=== PATIENT | male | born 2000 | race Caucasian/White ===

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

== ENCOUNTER 2022-11-17 17:43 | Emergency (ER) | payer BC, OTHER ==
[~2022-11-17] VITALS: Ht 172.7 cm; Wt 103.9 kg
[2022-11-17 17:54] VITALS: BP 146/63; PULSE 131; RESP 22; TEMP 102.8; O2SAT 99
[2022-11-17] MEDS ORDERED: KETOROLAC 30 MG/ML VIAL IVP ONE (19:00)
[2022-11-17] MEDS ORDERED: ACETAMINOPHEN EXTRA STRENGTH 500 MG TAB PO ONE (19:00)
[2022-11-17] MEDS ORDERED: NACL 0.9% 1,000 ML IV ONE (19:00)
[2022-11-17 19:07] LABS: BASOPHILS % (AUTO) 0.6 % (0.0-2.0); EOSINOPHILS % (AUTO) 0.1 % (0.0-4.0); HEMOGLOBIN 13.6 g/dL (12.0-18.0); LYMPHOCYTES # (AUTO) 0.7 K/uL (2.0-11.5); LYMPHOCYTES % (AUTO) 24.8 % (20.5-51.1); MEAN CORPUSCULAR HEMOGLOBIN 30 pg (27-31); MEAN CORPUSCULAR HGB CONC 35 g/dL (33-37); MEAN CORPUSCULAR VOLUME 85.1 fL (80-94); MONOCYTES # (AUTO) 0.3 K/uL (0.8-1.0); MONOCYTES % (AUTO) 10.4 % (1.7-9.3); NEUTROPHILS # (AUTO) 1.9 K/uL (1.8-7.7); NEUTROPHILS % (AUTO) 64.1 % (42.2-75.2); PLATELET COUNT (AUTO) 140 K/uL (140-450); RED BLOOD CELL COUNT(AUTO) 4.58 MIL/uL (4.20-6.10); RED CELL DISTRIBUTION WIDTH 13.1 % (11.6-13.7)
[2022-11-17 19:24] LABS: ANION GAP 13.4 (8-16); CALCIUM 8.7 mg/dL (8.5-10.1); CARBON DIOXIDE 26.3 mmol/L (21-32); POTASSIUM 3.7 mmol/L (3.5-5.1)
[2022-11-17 19:37] LABS: FLU A ANTIGEN negative (NEGATIVE); FLU B ANTIGEN negative (NEGATIVE)
[2022-11-17 19:58] VITALS: BP 118/58; PULSE 92; RESP 21; O2SAT 96
[2022-11-17 20:50] VITALS: TEMP 98.8
== END 2022-11-17 20:50 | disposition home or self-care (01) ==
LOC: MED 17:43
DX: B34.9 Viral infection, unspecified (principal); R00.0 Tachycardia, unspecified; Z20.822 Contact with and (suspected) exposure to COVID-19
CPT/HCPCS: 36415; 80048; 85025; 87426; 87804; 93005; 96361; 96374; 99284; J1885; J7030